=== PATIENT | male | born 1995 | race Two or more races ===

== ENCOUNTER 2021-04-25 18:13 | Emergency (ER) | payer OTHER ==
[~2021-04-25] VITALS: Ht 172.7 cm; Wt 63.5 kg
[2021-04-25] MEDS ORDERED: AZITHROMYCIN1 GM PO (21:13)
[2021-04-25] MEDS ORDERED: MEDROLPACK PO (21:16)
== END 2021-04-25 21:23 | disposition home or self-care (01) ==
LOC: ER 18:13
DX: J45.998 Other asthma (principal); F06.4 Anxiety disorder due to known physiological condition; B96.0 Mycoplasma pneumoniae [M. pneumoniae] as the cause of diseases classified elsewhere; Z11.52 Encounter for screening for COVID-19